=== PATIENT | male | born 1995 | race Caucasian/White ===

== ENCOUNTER 2021-08-11 19:03 | Emergency (ER) | payer OTHER ==
[~2021-08-11] VITALS: Ht 162.6 cm; Wt 56.8 kg
[2021-08-11 22:16] VITALS: BP 119/74
[2021-08-11 23:33] LABS: GC DNA AMPLIFICATION NEGATIVE (NEGATIVE)
== END 2021-08-11 22:18 | disposition home or self-care (01) ==
LOC: M ED 19:03
DX: N50.812 Left testicular pain (principal)